=== PATIENT | male | born 1960 | race Caucasian/White ===

== ENCOUNTER 2024-09-10 09:00 | Outpatient (RCR) | payer MEDICAID, SELFPAY | END 2024-10-10 09:46 | disposition home or self-care (01) | LOC: PT 09:00 | PROVIDERS: Visit Provider Orthopaedic Surgery | DX: M17.11 Unilateral primary osteoarthritis, right knee (principal) | CPT/HCPCS: 97110; 97140; 97163; 97164; 97530 ==

== ENCOUNTER 2025-08-18 10:11 | Outpatient (CLI) | payer MEDICAID, SELFPAY ==
--- OUTSIDE RECORDS SUMMARY | 2025-07-02 11:05 | XMS_ITS | Encounter Summary ---
Author Organization Healthcare Address [address] [id number] Care Team Providers Care Manager Of Construction Name Role Phone Black Karen AMEYA Primary Care Provider [phone] Raisa Cuevas MD Unavailable [phone] Jillian Hare Unavailable [phone] Chris Choe MD Unavailable [phone] Reason for Visit * Reason Comments Follow-up Encounter Details Date Type Department Care Team (Latest Contact Info) Description 07/02/2025 11:05 AM EDT - 07/02/2025 11:59 PM EDT Hospital Encounter [facility] [id number] [place] [address] Shu Hartman APRN [address] [place] [address] Prostate cancer (CMS/HCC) (Primary Dx) Discharge Disposition: Still a Patient Social History Tobacco Use Types Packs/Day Years Used Date Smoking Tobacco: Every Day Cigarettes 0.5 40.8 Started: 1984 Passive Smoke Exposure: Current Smokeless Tobacco: Never Tobacco Cessation:Ready to Q uit: Not Asked; Counseling Given: Not Answered Alcohol Use Standard Drinks/Week Comments Yes 0 (1 standard drink = 0.6 oz pur e alcohol) socially PHQ-2 Answer Date Recorded Patient Health Questionnaire-2 Score 0 11/12/2024 Sex and Gender Information Value Date Recorded Sex Assigned at Not on file Legal Sex Male 5:23 PM EDT Gender Identity Not on file Sexual Orientation Not on file documented as of this encounter Last Filed Vital Signs Vital Sign Reading Time Taken Comments Blood Pressure 133/77 07/02/2025 11:13 AM EDT Pulse 85 07/02/2025 11:13 AM EDT Temperature - - Respiratory Rate 16 07/02/2025 11:13 AM EDT Oxygen Saturation 98% 07/02/2025 11:13 AM EDT Inhaled Oxygen Concentration - - Weight 102 kg (225 lb 1.4 oz) 07/02/2025 11:13 A M EDT Height - - Body Mass Index 28.9 05/22/2025 9:09 AM EDT documented in this encounter Medications at Time of Discharge acetaminophen (Tylenol) 500 MG tablet Take 2 tablets (1,000 mg) by mouth every 6 (six) hours if needed for pain for up to 60 doses. 60 tablet 10/25/2024 albuterol 108 (90 Base) MCG/ACT inhaler Inhale 2 puffs as needed for wheezing. celecoxib (CeleBREX) 200 MG capsule 07/30/2024 gabapentin (Neurontin) 300 MG capsule TAKE ONE CAPSULE BY MOUTH NIGHTLY FOR FOURTEEN DAYS. max DAILY dosage 300 MG. 08/26/2024 ibuprofen 600 MG tablet Take 1 tablet (600 mg) by mouth every 6 (six) hours if needed for mild pain for up to 40 doses. 40 tablet 10/25/2024 lisinopril-hydroC HLOROthiazide 20-25 MG tablet Take 1 tablet by mouth daily. 04/30/2025 relugolix (Orgovyx) 120 MG tablet tablet Take 1 tablet by mouth daily. Take 3 tablets the first day and then one tablet daily for 6 months. 33 tablet 5 01/17/2025 tamsulosin (Flomax) 0.4 MG 24 hr capsuleIndication s:Prostate cancer (CMS/HCC) Take 1 capsule by mouth 1 time each day with dinner. 90 capsule 1 06/30/2025 documented as of this encounter Miscellaneous Notes * Progress Notes - Shu Hartman, RIVER CROSSING SUPERVISOR - 07/02/2025 11:40 AM EDT Images from the original note were not included. [facility] RADIATION MEDICINE RADIATION ONCOLOGY RIVER CROSSING SUPERVISOR FOLLOW UP NOTE Jed Garg is a 65 y.o. male with a diagnosis of prostate cancer who returns today for scheduled follow-up. Cancer Staging Prostate cancer (CMS/[facility]) Staging form: Prostate, AJCC 8th Edition - Clinical stage from 04/11/2025: Stage IIC (cT1c, cN0, cM0, PSA: 9.5, Grade Group: 3) - Signed by Chris Choe MD on 04/11/2025 Diagnosis: unfavorable-intermediate prostatic adenocarcinoma, [place] 4+3=7 (GG3), PT-PSA 9.5 ng/mL Referring Physician: Raisa Cuevas MD Radiation Oncologist: Chris Choe MD RADIATION THERAPY (XRT): Treatment Site: Prostate and Seminal Vesicles Total Dose: 7000 cGy delivered to prostate & SV in 28 fractions VMAT daily Date XRT completed: 04/28/2025-06/04/2025 HISTORY OF PRESENT ILLNESS: Jed Garg 65 y.o. male with PMH of HTN as well as recently diagnosed intermediate prostatic adenocarcinoma, for which he underwent a course of radiation, as documented above. He did well with treatment, did have some urinary retention managed with tamsulosin (Flomax). He presents today for scheduled follow up. Oncologic History: In brief, Mr Garg initially presented to Urology on 04/17/24 with an elevated PSA of 9.5 ng/ml, take 03/19/24. mpMRI 06/11/24 detailed a 31.2 mL gland and a PI- RADS 5 right midgland anterior PZ lesion, without SVI, CHRISTI, lymphadenopathy, or osseous involvement. MR Fusion Biopsy 10/25/24 detailed prostatic adenocarcinoma, Todd 4+3=7 (GG3) involving 1/2 cores in the RIGHT anterolateral region and G leason 3+4=7 (GG2) involving 2/2 cores in the RIGHT anteromedial region PSMA without evidence of metastatic disease. S/p gold fiducial placement and [employer]. IPSS Questionnaire (AUA-7): Over the past month??? 1) How often have you had a sensation of not emptying your bladder completely after you finish urinating? 0 - Not at all 2) How often have you had to urinate again less than two hours after you finished urinating? 0 - Not at all 3) How often have you found you stopped and started again several times when you urinated? 0 - Not at all 4) How difficult have you found it to postpone urination? 0 - Not at all 5) How often have you had a weak urinary stream? 0 - Not at all 6) How often have you had to push or strain to begin urination? 1 - Less than 1 time in 5 7) How many times did you most typically get up to urinate from the time you went to bed until the time you got up in the morning? 1 - 1 time Total score: 0-7 mildly symptomatic 8-19 moderately symptomatic 20-35 severely symptomatic Interval History: Doing well and feeling well. His fatigue has improved in the last 2 weeks. 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 No skin changes. Denies any progression of changes in urinary symptoms. IPPS similar to previous. No change in bowel habits. He denies nausea, vomiting, diarrhea, constipation, orblood with his bowel movements. Denies any new or unexplained aches or pains. No changes in health status, no recent illness or hospitalization. Review of Systems Constitutional: Positive for fatigue. HENT: Negative. Eyes: Negative. Respiratory: Negative. Gastrointestinal: Negative for abdominal pain, blood in stool, constipation and diarrhea. Endocrine: Negative. Genitourinary: Negative for dysuria, frequency and hematuria. Musculoskeletal: Negative. Skin: Negative for color change and rash. Allergic/Immunologic: Negative. Neurological: Negative. Psychiatric/Behavioral: Negative. KPS: 90 Past Medical, Surgical, and Family History: I have reviewed Mr. Garg's medical, surgical and otherpertinent history; unchanged from most recent clinic visit or updated as indicated in HPI. Social History[1] The patient has been counseled on tobacco cessation: Yes Medications: Current Outpatient Medications Medication Instructions acetaminophen (TYLENOL) 1,000 mg, Oral, Every 6 hours PRN albuterol 108 (90 Base) MCG/ACT inhaler 2 puffs, As needed celecoxib (CeleBREX) 200 MG capsule gabapentin (Neurontin) 300 MG capsule TAKE ONE CAPSULE BY MOUTH NIGHTLY FOR FOURTEEN DAYS. max DAILY dosage 300 MG. ibuprofen 600 mg, Oral, Every 6 hours PRN lisinopril-hydroCHLOROthiazide 20-25 MG tablet 1 tablet, Daily relugolix (ORGOVYX) 120 mg, Oral, Daily, Take 3 tablets the first day and then one tablet daily for6 months. tamsulosin (FLOMAX) 0.4 mg, Oral, Daily with dinner Allergies: Patient has no known allergies. Physical Exam: Vital Signs: Visit Vitals BP 133/77 Pulse 85 Resp 16 Wt 102 kg (225 lb 1.4 oz) SpO2 98% BMI 28.90 kg/m?? Smoking Status Every Day BSA 2.31 m?? Wt Readings from Last 3 Encounters: 07/02/25 102 kg (225 lb 1.4 oz) 05/29/25 95.4 kg (210 lb 5.1 oz) 05/22/25 95.1 kg (209 lb 10.5 oz) Physical Exam Constitutional: Appearance: Normal appearance. He is not ill-appearing. HENT: Head: Normocephalic and atraumatic. Nose: Nose normal. Mouth/Throat: Mouth: Mucous membranes are moist. Eyes: Extraocular Movements: Extraocular movements intact. Conjunctiva/sclera: Conjunctivae normal. Pupils: Pupils are equal, round, and reactive to light. Pulmonary: Effort: Pulmonary effort is normal. Abdominal: Palpations: Abdomen is soft. Musculoskeletal: General: Normal range of motion. Cervical back: Normal range of motion. Skin: General: Skin is warm. Capillary Refill: Capillary refill takes less than 2 seconds. Neurological: Mental Status: He is alert. Psychiatric: Mood and Affect: Mood normal. Thought Content: Thought content normal. Judgment: Judgment normal. DATA: Radiographic Studies: PET/CT PSMA 01/06/2025 FINDINGS: SUV max parotid gland: 23.5,Left SUVmean mediastinum: 1.2 SUV max liver: 5.1 SUV max spleen: 8.7 Psma avid activity within the prostate, predominantly anteriorly compatible with the patient's biopsy-proven prostate adenocarcinoma. PATHOLOGY: PROSTATE, RIGHT ANTERIOR MEDIAL, BIOPSY: - PROSTATIC ADENOCARCINOMA, TODD SCORE 3 + 4 = 7 (GRADE GROUP 2), INVOLVING 80% OF 2 (2) CORE (20% TODD PATTERN 4). E. PROSTATE, RIGHT ANTERIOR LATERAL, BIOPSY: - PROSTATIC ADENOCARCINOMA, TODD SCORE 4 + 3 = 7 (GRADE GROUP 3), INVOLVING 10% OF 1 (2) CORE (60% TODD PATTERN 4). PROSTATE, TYLER, BIOPSY: - PROSTATIC ADENOCARCINOMA, TODD SCORE 4 + 3 = 7 (GRADE GROUP 3), INVOLVING 80% OF 4 (4) CORE (60% TODD PATTERN 4) Laboratory studies: PSA, Diagnostic, Serum 0.00 - 4.50 ng/mL 11.10 High ASSESSMENT AND PLAN In summary, Jed Garg is a 65-year-old male with a history of unfavorable- intermediate risk prostatic adenocarcinoma ([place] 4+3=7, Grade Group 3, pretreatment PSA 9.5 ng/mL), now one month statuspost completion of definitive radiation therapy on 06/04/2025. Assessment: The patient is currently doing well with no reported or observed radiation- related toxicities. Physical exam is stable, and he remains asymptomatic. PSA was obtained today but results are pending at the time of this note. Plan: RIVER CROSSING SUPERVISOR will call patient with results of PSA. Addendum: PSA resulted. Called patient, no answer and I was unable to leave a message. Reviewed plan for ongoing PSA surveillance per NCCN guidelines (typically every 3 for the first 1-2years). Patient was advised to report any urinary, bowel, or systemic symptoms if they develop. Follow-up plan: We will have him return in 3 months with PSA. Future Appointments Date Time Provider Department Center 08/15/2025 2:00 PM Raisa Cuevas MD [facility] 09/15/2025 11:20 AM [facility] I believe all of his questions were answered, and knows to call with questions or concerns. Mr. Garg verbalized understanding of visit discussion, education, and instructions, and is in agreement with the plan of care listed above. I personally spent a total of 20 minutes on this encounter. This time includes face to face with patient, counseling and discussion and/or coordination of care. Please do not hesitate to contact our office if you have any questions or need further assistance regarding follow-up care. Shu Hartman RN, MSN, BREAK OUT WORKER-C, Nurse Practitioner Radiation Oncology [1] Social History Tobacco Use Smoking status: Every Day Current packs/day: 0.25 Average packs/day: 0.5 packs/day for 40.7 years (20.2 ttl pk-yrs) Types: Cigarettes Start date: 1984 Passive exposure: Current Smokeless tobacco: Never Vaping Use Vaping status: Never Used Substance Use Topics Alcohol use: Yes Comment: socially Drug use: Not Currently documented in this encounter Plan of Treatment Upcoming Encounters Date Type Department Care Team (Latest Contact Info) Description 09/15/2025 11:20 AM EST Appointment [facility] Rad[facility] [address] [id number] [place] [address] Chris Choe MD [address] [facility] [address] [place] [address] 01/02/2026 1:40 PM EDT Office Visit [facility] [address] [place] [phone] Raisa Cuevas MD [address] [facility] [address] [place] [address] 01/02/2026 1:40 PM EDT Clinical Support [facility] [address] [place] [address] documented as of this encounter Procedures Procedure Name Priority Date/Time Associated Diagnosis Comments PROSTATE SPECIFIC ANTIGEN, DIAGNOSTIC, SERUM Routine 07/02/2025 11:14 AM EDT documented in this encounter Results * PSA, diagnostic (07/02/2025 11:14 AM EDT) PSA, Diagnostic, Serum 0.58 0.00 - 4.50 ng/mL 07/02/2025 12:21 PM EDT [facility] Blood Venous blood specimen / Unknown Venipuncture / Unknown 07/02/2025 11:14 AM EDT 07/02/2025 11:43 AM EDT Narrative [facility] - 07/02/2025 12:21 PM EDT Performed by Annie electrochemiluminescent immunoassay which is standardized against the PSA Edward Reference Standard (WHO 96/670). Results obtained with different test methods or kits cannot be used interchangeably. us Shu Hartman APRN LAB BLOOD ORDERABLES Final R esult [facility] [address] [place] [address] documented in this encounter Visit Diagnoses Diagnosis Prostate cancer (CMS/HCC)- Primary Malignant neoplasm of prostate documented in this encounter Additional Health Concerns Assessment Noted Time A fall risk assessment has been complete d for the patient 07/02/2025 11:11 AM EDT A Body Mass Index follow-up plan has been documented for the patient 11/14/2024 4:53 PM EST documented as of this encounter Care Teams Manager Of Construction Relationship Specialty Start Date End Date Karen Cleaning APRN [address] [place] [address] PCP - General 04/03/24 Raisa Cuevas MD [address] [facility] [address] [place] [phone] Surgeon Urology 04/17/24 Jillian Hare PA [address] [facility] [address] [place] [phone] Physician Coke Loader Urology 11/12/24 Chris Choe MD [address] [facility] [address] [place] [phone] Consulting Physician Radiation Oncology 11/14/24 documented as of this encounter
--- OUTSIDE RECORDS SUMMARY | 2025-08-15 14:00 | XMS_ITS | Encounter Summary ---
Author Organization Healthcare Address [address] [place] [address] Care Team Providers Care Binding Cutter Name Role Phone Karen Cleaning APRN Primary Care Provider [phone] Raisa Cuevas MD Unavailable [phone] Jillian Hare Unavailable [phone] Chris Choe MD Unavailable [phone] Reason for Visit * Reason Comments Follow-up Malignant neoplasm o f prostate- Follow up after Rad. Tx Encounter Details Date Type Department Care Team (Latest Contact Info) Description 08/15/2025 2:00 PM EDT Office Visit [facility] Multidisciplinary Oncology Clinic [address] [place] [phone] Raisa Cuevas MD [address] [facility] [address] [place] [address] Prostate cancer (CMS/HCC) (Primary Dx) Social History Tobacco Use Types Packs/Day Years Used Date Smoking Tobacco: Every Day Cigarettes 0.5 40.8 Started: 1984 Passive Smoke Exposure: Current Smokeless Tobacco: Never Alcohol Use Standard Drinks/Week Comments Yes 0 (1 standard drink = 0.6 oz pur e alcohol) socially PHQ-2 Answer Date Recorded Patient Health Questionnaire-2 Score 0 08/15/2025 PHQ-9 Answer Date Recorded Patient Health Questionnaire-9 Score 0 08/15/2025 Sex and Gender Information Value Date Recorded Sex Assigned at Not on file Legal Sex Male 5:23 PM EDT Gender Identity Not on file Sexual Orientation Not on file documented as of this encounter Last Filed Vital Signs Vital Sign Reading Time Taken Comments Blood Pressure 134/84 08/15/2025 2:04 PM EDT Pulse 81 08/15/2025 2:04 PM EDT Temperature 36.7 C (98 F) 08/15/2025 2:04 PM EDT Respiratory Rate 14 08/15/2025 2:04 PM EDT Oxygen Saturation 96% 08/15/2025 2:04 PM EDT Inhaled Oxygen Concentration - - Weight 101 kg (221 lb 12.5 oz) 08/15/2025 2:04 P M EDT Height 188 cm (6' 2 ) 08/15/2025 2:04 PM EDT Body Mass Index 28.48 08/15/2025 2:04 PM EDT documented in this encounter Functional Status * Over the past 2 weeks, how often have you been bothered by any of the following problems? Question Answer Date of Assessment Author Little interest or pleasure in doing things Not at all 08/15/2025 2:06 PM EDT Yael Donato Feeling down, depressed, or hopeless Not at all 07/24 2:06 PM EDT Yael Donato Patient Health Questionnaire-2 Score 0 07/24 2:06 PM EDT Yael Donato * Question Answer Date of Assessment Author Trouble falling or staying a sleep, or sleeping too much Not at all 08/15/2025 2:06 PM EDT Yael Donato Feeling tired or having sean le energy Not at all 08/15/2025 2:06 PM EDT Yael Donato Poor appetite or overeating Not at all 08/15/2025 2: 06 PM EDT Yael Donato Feeling bad about yourself - or that you are a failure or have let yourself or your family down Not at all 08/15/2025 2:06 PM EDT Brooks Donato Trouble concentrating on thi ngs, such as reading the newspaper or watching television Not at all 08/15/2025 2:06 PM EDT Yael Donato Moving or speaking so slowly that other people could have noticed? Or the opposite - being so fidgety or restless that you have been moving around a lot more than usual. Not at all 08/15/2025 2:06 PM EDT Karlene Donato Thoughts that you would be b lindy off or hurting yourself in some way Not at all 08/15/2025 2:06 PM EDT Yael Donato Patient Health Questionnaire-9 Score 0 07/24 2:06 PM EDT Yael Donato * How difficult have these problems made it for you to do your work, take care of things at home, or get along with other people? Answer Date of Assessment Author Not difficult at all 08/15/2025 2:06 PM EDT Yael Donato documented as of this encounter Plan of Treatment Upcoming Encounters Date Type Department Care Team (Latest Contact Info) Description 09/15/2025 11:20 AM EST Appointment [facility] Rad[facility] [address] [facility] [id number] [place] [address] Chris Choe MD [address] [facility] [address] [place] [address] 01/02/2026 1:40 PM EDT Office Visit [facility] [address] [place] [phone] Raisa Cuevas MD [address] [facility] [address] [place] [address] 01/02/2026 1:40 PM EDT Clinical Support [facility] [address] [place] [phone] Scheduled Orders Name Type Priority Associated Diagnoses Orde r Schedule PSA, diagnostic Lab Routine Prostate cancer (CMS/HCC) Expected: 01/13/2026 (Approximate), Expires: 02/16/2027 Testosterone Total Lab Routine Prostate cancer (CMS/HCC) Expected: 01/13/2026 (Approximate), Expires: 02/16/2027 documented as of this encounter Visit Diagnoses Diagnosis Prostate cancer (CMS/HCC)- Primary Malignant neoplasm of prostate documented in this encounter Additional Health Concerns Assessment Noted Time PHQ-9 Depression Total Score: 0 08/15/20 2:06 PM EDT A fall risk assessment has been complete d for the patient 08/15/2025 2:06 PM EDT A Body Mass Index follow-up plan has been documented for the patient 11/14/2024 4:53 PM EST documented as of this encounter Care Teams Binding Cutter Relationship Specialty Start Date End Date Karen Cleaning APRN [address] [place], [place] [id number] PCP - General 04/03/24 Raisa Cuevas MD [address] [place] [address] Surgeon Urology 04/17/24 Jillian Hare PA [address] [place] [address] Physician Lime Sludge Mixer Urology 11/12/24 Chris Choe MD [address] [place] [address] Consulting Physician Radiation Oncology 11/14/24 documented as of this encounter
--- NOTE | 2025-08-18 10:15 | CT_ITS ---
FINAL REPORT TECHNIQUE: Axial CT images of the chest were obtained without contrast. Low-dose protocol was utilized. This study was performed with techniques to keep radiation doses as low as reasonably achievable (ALARA). Individualized dose reduction techniques using automated exposure control or adjustment of mA and/or kV according to the patient's size were employed. CLINICAL HISTORY: HX OF TOBACCO. smoker 1ppd for 15 years. hx prostate cancer. COMPARISON: None FINDINGS: CT CHEST WITHOUT, LOW DOSE SCREENING CT Di Vol: 2.90 mGy DLP: 121.16 mGy*cm There is no mediastinal mass or adenopathy. The heart size is normal. There is no pleural or pericardial effusion. The lung windows show no suspicious mass or nodule. There are multitude of scattered calcified granulomas in both lungs. Limited images of the upper abdomen demonstrate no acute findings. IMPRESSION: No suspicious mass or nodule. LR Category 1: 12 month follow-up low-dose chest CT is recommended per Fleischner criteria. Reviewed, Interpreted and Dictated by Norman Gabriel MD Transcribed by Shu Jones Authenticated and [facility]
--- OUTSIDE RECORDS SUMMARY | 2025-08-18 10:21 | XMS_ITS | Encounter Summary ---
Author Organization Healthcare Address [address] [place] [address] Care Team Providers Care Home Care Scheduler Name Role Phone Karen Cleaning AMEYA Primary Care Provider [phone] Raisa Cuevas MD Unavailable [phone] Jillian Hare Unavailable [phone] Chris Choe MD Unavailable [phone] Reason for Visit * Reason Onset Date Comments Med Refill 06/27/2025 Encounter Details Date Type Department Care Team (Late st Contact Info) Description 06/27/2025 Refill [facility] [address] [place] [phone] Chris Choe MD [address] [facility] [address] [place] [address] Social History Tobacco Use Types Packs/Day Years [...] on file documented as of this encounter Plan of Treatment Upcoming Encounters Date Type Department Care Team (Latest Contact Info) Description 09/15/2025 11:20 AM EST Appointment [facility] Radiation [address] [facility] [id number] [place] [address] Chris Choe MD [address] [address] 01/02/2026 1:40 PM EDT Office Visit [facility] Multidisciplinary Oncology Clinic [address] [place] [address] Raisa Cuevas MD [address] [address] 01/02/2026 1:40 PM EDT Clinical Support [facility] Multidisciplinary Oncology Clinic [address] [place] [address] documented as of this encounter Visit Diagnoses Not on filedocumented in this encounter Additional Health Concerns Assessment Noted Time A fall risk assessment has been complete d for the patient 05/22/2025 9:09 AM EDT A Body Mass Index follow-up plan has been documented for the patient 11/14/2024 4:53 PM EST documented as of this encounter Care Teams Home Care Scheduler Relationship Specialty Start Date End Date Karen Cleaning APRN [address] [place] [address] PCP - General 04/03/24 Raisa Cuevas MD [address] [phone] Surgeon Urology 04/17/24 Jillian Hare PA [address] [address] Physician [employer] Lead [employer]ds Marketing Urology 11/12/24 Chris Choe MD [address] [phone] Consulting Physician Radiation Oncology 11/14/24 documented as of this encounter
--- OUTSIDE RECORDS SUMMARY | 2025-08-18 10:21 | XMS_ITS | Encounter Summary ---
Author Organization [facility] Address [address] [place] [address] Care Team Providers Care Traffic Routing Engineer Name Role Phone BlackKaren AMEYA Primary Care Provider [phone] Raisa Cuevas MD Unavailable [phone] Jillian Hare Unavailable [phone] Chris Choe MD Unavailable [phone] Encounter Details Date Type Department Care Team (Late st Contact Info) Description 07/07/2025 Telephone [facility] [address] [place] [address] Pushpa Espinoza RN [facility] Social History Tobacco Use Types Packs/Day Years [...] on file documented as of this encounter Miscellaneous Notes * Telephone Encounter - Pushpa Espinoza RN - 07/07/2025 12:56 PM EDT Patient called about recent PSA results. I relayed results is 0.58, nothing else needed. documented in this encounter Plan of Treatment Upcoming Encounters Date Type Department Care Team (Latest Contact Info) Description 09/15/2025 11:20 AM EST Appointment [facility] Radiation 800 [facility] [id number] [place] [address] Chris Choe MD 800 [facility] [address] [place] [phone] 01/02/2026 1:40 PM EDT Office Visit [facility] [address] [place] [address] Raisa Cuevas MD [address] [address] 01/02/2026 1:40 PM EDT Clinical Support [facility] [address] [place] [address] documented as of this encounter Visit Diagnoses Not on filedocumented in this encounter Additional Health Concerns Assessment Noted Time A fall risk assessment has been complete d for the patient 07/02/2025 11:11 AM EDT A Body Mass Index follow-up plan has been documented for the patient 11/14/2024 4:53 PM EST documented as of this encounter Care Teams Traffic Routing Engineer Relationship Specialty Start Date End Date Karen Cleaning APRN [address] [place] [address] PCP - General 04/03/24 Raisa Cuevas MD [address] [facility]00 [place] [phone] Surgeon Urology 04/17/24 Jillian Hare PA [address] [phone] Physician Senior Market Research Analyst Urology 11/12/24 Chris Choe MD [address] [place] [address] [address] [place] [address] Consulting Physician Radiation Oncology 11/14/24 documented as of this encounter
--- OUTSIDE RECORDS SUMMARY | 2025-08-18 10:21 | XMS_ITS | Clinical Summary ---
Author Organization [employer] ([place], [place], [place], [place]) Address [address] [facility] [place] [address] Care Team Providers Care Social Service Director Name Role Phone OcasioKimberly reddy [place] WEED THINNER Primary Care Provider + [phone] Allergies No known active allergies Medications lisinopril-hydro CHLOROthiazide (PRINZIDE,ZESTOR ETIC) 20-12.5 mg per tablet Take 1 tablet by mouth daily. Active Active Problems Problem Noted Date Diagnosed Date Primary osteoarthritis of right knee 07/15/2024 Essential hypertension 03/26/2024 Nicotine dependence 11/21/2019 Overview (07/30/2024): Problem Code: F17.200; Problem Code Type: ICD-10; Social History Tobacco Use Types Packs/Day Years Used Date Smoking Tobacco: Every Day Cigarettes Smokeless Tobacco: Never Tobacco Cessation:Ready to Q uit: Not Asked; Counseling Given: Not Answered Alcohol Use Standard Drinks/Week Comments Not Currently 2 (1 standard drink = 0.6 oz pur e alcohol) Employment Answer Date Recorded Help finding and keeping a job Not on file 0 03/25/2024 Family and Community Support Answer Brice e Recorded Help with Day to Day Activities Not on file 03/25/2024 Feeling Lonely or Isolated Not on file 03/25 Educational Attainment Answer Date Qamar rded Speak language other than [place]inean at home Not on file 03/25/2024 Want help with school or training Not on file 03/25/2024 Substance Use Answer Date Recorded Used prescription meds for non-medical reasons N ot on file 03/25/2024 Used illegal drugs past 12 months Not on file 03/25/2024 Sex and Gender Information Value Date Recorded Sex Assigned at Not on file Legal Sex Male 1:05 PM CDT Gender Identity Not on file Sexual Orientation Not on file Last Filed Vital Signs Vital Sign Reading Time Taken Comments Blood Pressure 131/82 10/21/2024 9:52 AM EST Pulse 92 10/21/2024 9:52 AM EST Temperature 36.2 C (97.2 F) 07/30/2024 2:45 PM EDT Respiratory Rate 19 08/12/2024 10:09 AM EDT Oxygen Saturation 97% 07/30/2024 2:45 PM EDT Inhaled Oxygen Concentration - - Weight 95.3 kg (210 lb) 10/21/2024 9:48 AM EST Height 188 cm (6' 2 ) 10/21/2024 9:48 AM EST Body Mass Index 26.96 10/21/2024 9:48 AM EST Plan of Treatment Health Maintenance Due Date Last Done Comments CT Colonography 1962 Colonoscopy 1962 Colorectal Cancer Screening 1962 FOBT/FIT 1962 Fit-DNA (Cologuard) 1962 Sigmoidoscopy 1962 Depression Screening (12+) 1974 Tobacco Cessation Counseling and Screening (12+) 1974 HIV Screening 1977 Hepatitis C Screening 1980 DTAP/TDAP/TD VACCINES (1 - Tdap) 1981 Pneumococcal 50+ years (1 of 2 - PCV) 1981 Lipid Panel 1997 Shingles Vaccine (Zoster) (1 of 2) 2012 COVID-19 VACCINE (3 - season) 06/23/202510/2020, 12/24/2020 Influenza Vaccine (#1) 2025 Respiratory Syncytial Virus (RSV) Adult or (1 - 1-dose 75+ series) 2037 Medical Devices Implanted Type Area Cylinder Machine Operator Pulp Drier Device Identifier Shelf Expiration Date Model / Serial / Lot Comp Fem P/A Ps Beaded Sz6 R 5516-F-602 - [id number] Implanted:Qt y: 1 on 07/30/2024 by Jean Claude Rae MD at [facility] TOTAL JOINT CONSTRUCT Right: Knee MAGGIE:[employer] [id number] 10/06/2028 5516-F-60 2 / / [id number] Comp Triathlon-Ti b Trita Sz-6 5536-B-600 - [id number] Implanted:Qt y: 1 on 07/30/2024 by Jean Claude Rae MD at [facility] TOTAL JOINT CONSTRUCT Right: Knee [employer]IE:[employer] [id number] 04/01/2029 5536-B-60 0 / / [id number] Patella Press Fit Tritnm 38x11 5552-L-381 - [id number] Implanted:Qt y: 1 on 07/30/2024 by Jean Claude Rae MD at [facility] TOTAL JOINT CONSTRUCT Right: Knee [employer] [id number] 02/13/2029 5552-L-38 1 / / [id number] Insrt Triath Ps X3 6-9mm 1510-V-485-E - [id number] Implanted:Qt y: 1 on 07/30/2024 by Jean Claude Rae MD at [facility] TOTAL JOINT CONSTRUCT Right: Knee [employer] [id number] 08/28/2028 5532-G-60 9-E / / [id number] Insurance Advance Directives For more information, please contact: [phone] * Full Code (Latest Code Status on File) Date Activated Date Inactivated Comments 07/30/2024 12:00 PM 07/30/2024 3:56 PM * Full Code Date Activated Date Inactivated Comments 07/30/2024 8:35 AM 07/30/2024 12:00 PM Care Teams Social Service Director Relationship Specialty Start Date End Date Kimberly Ocasio, WEED THINNER [address] [place] [address] PCP - General Family Medicine 07/16/24
--- OUTSIDE RECORDS SUMMARY | 2025-08-18 10:21 | XMS_ITS | Encounter Summary ---
Author Organization [facility] Address [address] [place] [address] Care Team Providers Care Sheeter Machine Operator Name Role Phone Karen Cleaning APRN Primary Care Provider [phone] Raisa Cuevas MD Unavailable [phone] Jillian Hare Unavailable [phone] Chris Choe MD Unavailable [phone] Encounter Details Date Type Department Care Team (Latest Contact Info) Description 07/02/2025 Travel Social History Tobacco Use Types Packs/Day Years [...] AM EST Appointment [facility] Radiation 800 [facility] [id number] [place] [address] Chris Choe MD 800 [facility] [address] [place] [address] 01/02/2026 1:40 PM EDT Office Visit [facility] [address] [place] [address] Raisa Cuevas MD [id number] [place] [phone] 01/02/2026 1:40 PM EDT Clinical Support [facility] Multidisciplinary Oncology Clinic [address] [place] [address] documented as of this encounter Visit Diagnoses Not on filedocumented in this encounter Additional Health Concerns Assessment Noted Time A fall risk assessment has been complete d for the patient 07/02/2025 11:11 AM EDT A Body Mass Index follow-up plan has been documented for the patient 11/14/2024 4:53 PM EST documented as of this encounter Care Teams Sheeter Machine Operator Relationship Specialty Start Date End Date Karen CleaningAMEYA [address] [place], [place] [id number] PCP - General 04/03/24 Raisa Cuevas MD [address] [facility] [address] [place] [address] Surgeon Urology 04/17/24 Jillian Hare PA [id number] [place] [address] Physician Potato Spotter Urology 11/12/24 Chris Choe MD 800 [facility] [address] [place] [address] Consulting Physician Radiation Oncology 11/14/24 documented as of this encounter
--- OUTSIDE RECORDS SUMMARY | 2025-08-18 10:21 | XMS_ITS | Encounter Summary ---
Author Organization [facility] Address [address] [id number] Care Team Providers Care Heel Cover Splitter Name Role Phone BlackKaren AMEYA Primary Care Provider [phone] Raisa Cuevas MD Unavailable [phone] Jillian Hare Unavailable [phone] Chris Choe MD Unavailable [phone] Encounter Details Date Type Department Care Team (Latest Contact Info) Description 08/15/2025 Travel Social History Tobacco Use Types Packs/Day [...] on file documented as of this encounter Functional Status * Over the [...] Not at all 08/15/2025 2:06 PM EDT [facility] [place] Poor appetite or overeating Not at [...] AM EST Appointment [facility] Rad[facility] 800 [facility] [id number] [place] [address] Chris Choe MD 800 [facility] [address] [place] [address] 01/02/2026 1:40 PM EDT Office Visit [facility] [address] [place] [address] Raisa Cuevas MD [address] [place] [address] 01/02/2026 1:40 PM EDT Clinical Support [facility] Multidisciplinary Oncology Clinic [address] [place] [address] documented as of this encounter Visit Diagnoses [...] documented as of this encounter Care Teams Heel Cover Splitter Relationship Specialty Start Date End Date Karen Cleaning APRN [address] [place], [place] [id number] PCP - General 04/03/24 Raisa Cuevas MD [address] [place] [address] Surgeon Urology 04/17/24 Jillian Hare PA [address] [place] [address] Physician Internet Specialist Urology 11/12/24 Chris Choe MD 800 [facility] [address] [place] [address] Consulting Physician Radiation Oncology 11/14/24 documented as of this encounter
--- OUTSIDE RECORDS SUMMARY | 2025-08-18 10:21 | XMS_ITS | Encounter Summary ---
Author Organization Healthcare Address [address] [id number] Care Team Providers Care Neuroscience Specialist Name Role Phone Karen Cleaning AMEYA Primary Care Provider + [phone] Raisa Cuevas MD Unavailable [phone] Jillian Hare Unavailable [phone] Chris Choe MD Unavailable [phone] Encounter Details Date Type Department Care Team (Late st Contact Info) Description 06/30/2025 Orders Only [facility] Radiation [address] [address] Reyes Valdez MD [address] [place] [address] Prostate cancer (CMS/HCC) (Primary Dx) Social History [...] AM EST Appointment [facility] Radiation [address] [address] Chris Choe MD 800 [facility] [address] [place] [address] 01/02/2026 1:40 PM EDT Office Visit [facility] [address] [place] [phone] Raisa Cuevas MD [address] [address] 01/02/2026 1:40 PM EDT Clinical Support [facility] Multidisciplinary Oncology Clinic [address] [place] [address] documented as of this encounter [...] documented as of this encounter Care Teams Neuroscience Specialist Relationship Specialty Start Date End Date BlackKarenAMEYA [address] [place], [place] [id number] PCP - General 04/03/24 Raisa Cuevas MD [address] [address] Surgeon Urology 04/17/24 Jillian Hare PA [address] [address] Physician Inspector Process Urology 11/12/24 Chris Choe MD 800 [facility] [address] [place] [address] Consulting Physician Radiation Oncology 11/14/24 documented as of this encounter
--- OUTSIDE RECORDS SUMMARY | 2025-08-18 10:21 | XMS_ITS ---
Author Organization Healthcare Address [address] [place] [address] Care Team Providers Care Solar Energy System Installer Name Role Phone Karen Cleaning APRN Primary Care Provider [phone] Raisa Cuevas MD Unavailable [phone] Jillian Hare Unavailable [phone] Chris Choe MD Unavailable [phone] Active Problems Problem Noted Date Diagnosed Date Tobacco use disorder 08/15/2025 Prostate cancer 04/06/2025 Cancer Staging:Clinical stage from 04/11/2025:Stage IIC(cT1c, cN0, cM0, PSA: 9.5, Grade Group: 3) - Signed by Chris Choe MD on 04/11/2025 Primary hypertension 10/25/2024 Asthma 10/25/2024 Arthritis 10/25/2024 Current Treatment and Therapy Plans No current plan information found. Past Treatment and Therapy Plans No past plan information found. Current Radiation Episodes * Radiation Therapy: Midline ProstateOverview* First Treatment Date Latest Treatment Date Treatment Site Technique Goal Episode Provider 04/28/2025 06/05/2025 Midline Prostate Definitive * Linked Problems Prostate cancer Treatment Courses* Course IMRT QA 06/05/2025 - 06/05/2025 Treatment Period Fraction Dose Fractions Total Dose Plans Planned A1-2 Prost/SV 06/05/2025 - 06/05/2025 250 cGy 0 / 1 250 cGy Reference Points Delivered Verification 06/05/2025 - 06/05/2025 0 cGy * Course C1 04/28/2025 - 06/04/2025 Treatment Period Fraction Dose Fractions Total Dose Plans Planned A1-2 Prost/SV 04/28/2025 - 06/04/2025 250 cGy / 7,000 cGy Reference Points Delivered PTV_XX 04/28/2025 - 06/04/2025 7,000 cGy
--- OUTSIDE RECORDS SUMMARY | 2025-08-18 10:21 | XMS_ITS | Referral Summary ---
Author Organization [facility] ([place], [place], [place], [place]) Address [address] [place] [address] Care Team Providers Care Assembler Mechanical Ordnance Name Role Phone Amarjit Kimberly [employer] HOU Primary Care Provider + [phone] Allergies No known active allergies Medications lisinopril-hydro [...] Date Qamar rded Speak language other than Georgian at home Not on file 03/25/2024 Want [...] 10/21/2024 9:48 AM EST Plan of Treatment Not on file Medical Devices Implanted Type Area Box Sealing Machine Catcher Device Identifier Shelf Expiration Date Model / Serial / Lot Comp Fem P/A Ps Beaded Sz6 R 5516-F-602 - [id number] Implanted:Qt y: 1 on 07/30/2024 by Jean Claude Rae MD at [facility] TOTAL JOINT CONSTRUCT Right: Knee [employer] [id number] 10/06/2028 5516-F-60 2 / / [id number] Comp Triathlon-Ti b Trita Sz-6 5536-B-600 - [id number] Implanted:Qt y: 1 on 07/30/2024 by Jean Claude Rae MD at [facility] TOTAL JOINT CONSTRUCT Right: Knee [employer] [id number] 04/01/2029 5536-B-60 0 / / [id number] Patella Press Fit Tritnm 38x11 5552-L-381 - [id number] Implanted:Qt y: 1 on 07/30/2024 by Jean Claude Rae MD at [facility] TOTAL JOINT CONSTRUCT Right: Knee [employer] [id number] 02/13/2029 5552-L-38 1 / / [id number] Insrt Triath Ps X3 6-9mm 0731-J-033-E - [id number] Implanted:Qt y: 1 on 07/30/2024 by Jean Claude Rae MD at [facility] TOTAL JOINT CONSTRUCT Right: Knee [employer] [id number] 08/28/2028 5532-G-60 9-E / / [id number] Insurance [facility] Advance Directives For more information, please contact: [phone] * Full Code (Latest Code Status on File) Date Activated Date Inactivated Comments 07/30/2024 12:00 PM 07/30/2024 3:56 PM * Full Code Date Activated Date Inactivated Comments 07/30/2024 8:35 AM 07/30/2024 12:00 PM Care Teams Assembler Mechanical Ordnance Relationship Specialty Start Date End Date Kimberly Ocasio, FAN ENGINE ENGINEER [address] [place] [address] PCP - General Family Medicine 07/16/24
--- OUTSIDE RECORDS SUMMARY | 2025-08-18 10:22 | XMS_ITS | Clinical Summary ---
Author Organization [facility] Address [address] [place] [address] Care Team Providers Care Management Accountant Name Role Phone BlackKaren AMEYA Primary Care Provider [phone] Raisa Cuevas MD Unavailable [phone] Jillian Hare Unavailable [phone] Chris Choe MD Unavailable [phone] Allergies No known active allergies Medications albuterol 108 (90 Base) MCG/ACT inhaler Inhale 2 puffs as needed for wheezing. Active ibuprofen 600 MG tablet Take 1 tablet (600 mg) by mouth every 6 (six) hours if needed for mild pain for up to 40 doses. 40 tablet 10/25/2024 Active acetaminophen (Tylenol) 500 MG tablet Take 2 tablets (1,000 mg) by mouth every 6 (six) hours if needed for pain for up to 60 doses. 60 tablet 10/25/2024 Active celecoxib (CeleBREX) 200 MG capsule 07/30/2024 Active gabapentin (Neurontin) 300 MG capsule TAKE ONE CAPSULE BY MOUTH NIGHTLY FOR FOURTEEN DAYS. max DAILY dosage 300 MG. 08/26/2024 Active relugolix (Orgovyx) 120 MG tablet tablet Take 1 tablet by mouth daily. Take 3 tablets the first day and then one tablet daily for 6 months. 33 tablet 5 01/17/2025 Active lisinopril-hydr oCHLOROthiazide 20-25 MG tablet Take 1 tablet by mouth daily. 04/30/2025 Active tamsulosin (Flomax) 0.4 MG 24 hr capsuleIndicati ons:Prostate cancer (CMS/HCC) Take 1 capsule by mouth 1 time each day with dinner. 90 capsule 1 06/30/2025 Active Active Problems Problem Noted Date Diagnosed Date Tobacco use disorder 08/15/2025 Prostate cancer 04/06/2025 Cancer Staging:Clinical stage from 04/11/2025:Stage IIC(cT1c, cN0, cM0, PSA: 9.5, Grade Group: 3) - Signed by Chris Choe MD on 04/11/2025 Primary hypertension 10/25/2024 Asthma 10/25/2024 Arthritis 10/25/2024 Encounters Date Type Department Care Team Description 08/15/2025 2:00 PM EDT Office Visit [facility] [address] [place] [address] Raisa Cuevas MD Prostate cancer (CMS/HCC) (Primary Dx) 08/15/2025 Travel 07/07/2025 Telephone [facility] [address] [address] Pushpa Espinoza RN 07/02/2025 11:05 AM EDT - 07/02/2025 11:59 PM EDT Hospital Encounter [facility] [address] [address] Shu Hartman APRN Prostate cancer (CMS/HCC) (Primary Dx) Discharge Disposition: Still a Patient 07/02/2025 Travel 06/30/2025 Orders Only [facility] [address] [phone] Reyes Valdez MD Prostate cancer (CMS/HCC) (Primary Dx) 06/27/2025 Refill [facility] [address] [place] [address] Chris Choe MD 06/10/2025 Telephone [facility] [address] [place] [address] Raisa Cuevas MD 06/05/2025 Orders Only [facility] [address] [phone] Radiation Oncology, Physician, 06/05/2025 Orders Only [facility] [address] [address] Radiation Oncology, Physician, 06/04/2025 9:16 AM EDT - 06/04/2025 11:59 PM EDT Hospital Encounter [facility] [address] [address] Discharge Disposition: Still a Patient 06/04/2025 Orders Only [facility] [address] [address] Radiation Oncology, PhysicianMD 06/03/2025 9:22 AM EDT - 06/03/2025 11:59 PM EDT Hospital Encounter [facility] [address] [address] Discharge Disposition: Still a Patient 06/03/2025 Telephone [facility] [address] [place] [address] Raisa Cuevas MD HCN - Patient Message (Requesting reports ); HCN Status Update Call #1 06/03/2025 Orders Only [facility] [address] [address] Radiation Oncology, PhysicianMD 06/02/2025 9:04 AM EDT - 06/02/2025 11:59 PM EDT Hospital Encounter [facility] [address] [address] Discharge Disposition: Still a Patient 06/02/2025 7:50 AM EDT - 06/02/2025 9:03 AM EDT Hospital Encounter [facility] [address] [address] Discharge Disposition: Still a Patient 06/02/2025 Orders Only [facility] [address] [address] Radiation Oncology, PhysicianMD 06/02/2025 Travel 05/30/2025 9:21 AM EDT - 05/30/2025 11:59 PM EDT Hospital Encounter [facility] [address] [address] Discharge Disposition: Still a Patient 05/30/2025 Orders Only [facility] [address] [address] Radiation Oncology, Physician, 05/29/2025 9:16 AM EDT - 05/29/2025 11:59 PM EDT Hospital Encounter [facility] [address] [address] Chris Choe MD Prostate cancer ([facility]/HCC) (Primary Dx) Discharge Disposition: Still a Patient 05/29/2025 9:16 AM EDT - 05/29/2025 11:59 PM EDT Hospital Encounter [facility] [address] [address] Discharge Disposition: Still a Patient 05/29/2025 Orders Only [facility] [address] [address] Radiation Oncology, PhysicianMD 05/28/2025 9:34 AM EDT - 05/28/2025 11:59 PM EDT Hospital Encounter [facility] [address] [address] Discharge Disposition: Still a Patient 05/28/2025 Orders Only [facility] [address] [address] Radiation Oncology, PhysicianMD 05/27/2025 9:07 AM EDT - 05/27/2025 11:59 PM EDT Hospital Encounter [facility] [address] [address] Discharge Disposition: Still a Patient 05/27/2025 Orders Only [facility] [address] [address] Radiation Oncology, PhysicianMD 05/26/2025 8:31 AM EDT - 05/26/2025 11:59 PM EDT Hospital Encounter [facility] [address] [address] Discharge Disposition: Still a Patient 05/26/2025 7:50 AM EDT - 05/26/2025 8:30 AM EDT Hospital Encounter [facility] [address] [address] Discharge Disposition: Still a Patient 05/26/2025 Orders Only [facility] [address] [phone] Radiation Oncology, PhysicianMD 05/26/2025 Travel 05/23/2025 9:15 AM EDT - 05/23/2025 11:59 PM EDT Hospital Encounter [facility] [address] [phone] Discharge Disposition: Still a Patient 05/23/2025 Orders Only [facility] [address] [phone] Radiation Oncology, PhysicianMD 05/22/2025 9:06 AM EDT - 05/22/2025 11:59 PM EDT Hospital Encounter [facility] [address] [phone] Chris Choe MD Prostate cancer ([facility]) (Primary Dx) Discharge Disposition: Still a Patient 05/22/2025 8:50 AM EDT - 05/22/2025 9:05 AM EDT Hospital Encounter [facility] [address] [phone] Discharge Disposition: Still a Patient 05/22/2025 Orders Only [facility] [address] [address] Radiation Oncology, PhysicianMD 05/21/2025 9:10 AM EDT - 05/21/2025 11:59 PM EDT Hospital Encounter [facility] [address] [address] Discharge Disposition: Still a Patient 05/21/2025 Orders Only [facility] [address] [phone] Radiation Oncology, PhysicianMD 05/20/2025 8:59 AM EDT - 05/20/2025 11:59 PM EDT Hospital Encounter [facility] [address] [phone] Discharge Disposition: Still a Patient 05/20/2025 Orders Only [facility] [address] [address] Radiation Oncology, Physician, 05/19/2025 8:58 AM EDT - 05/19/2025 11:59 PM EDT Hospital Encounter [facility] [address] [address] Discharge Disposition: Still a Patient 05/19/2025 7:50 AM EDT - 05/19/2025 8:57 AM EDT Hospital Encounter [facility] [address] [address] Discharge Disposition: Still a Patient 05/19/2025 Travel 05/19/2025 Orders Only [facility] [address] [address] Radiation Oncology, Physician, from Last 3 Months Family History Medical History Relation Name Comments Heart disease Father Leukemia Mother Malig Hyperthermia Neg Hx Relation Name Status Comments Father Mother Social History Tobacco Use Types Packs/Day Years [...] Mass Index 28.48 08/15/2025 2:04 PM EDT Plan of Treatment Upcoming Encounters Date Type Department Care Team (Latest Contact Info) Description 09/15/2025 11:20 AM EST Appointment [facility] [address] [facility] [address] [place] [address] Chris Choe MD [address] [facility] [address] [place] [address] 01/02/2026 1:40 PM EDT Office Visit [facility] [address] [place] [address] Raisa Cuevas MD [address] [facility] [address] [place] [address] 01/02/2026 1:40 PM EDT Clinical Support [facility] [address] [place] [address] Health Maintenance Due Date Last Done Comments [facility]-HIV Screening 1962 [facility]-Hepatitis C Screening 1962 [facility]-/Child/Adol SDOH Screenings 1962 [facility]- SDOH Screenings 1980 [facility]-Adult SDOH Screenings 1980 [facility]-DTaP,Tdap,and Td Vaccine s (1 - Tdap) 1981 [facility]-Pneumococcal Vaccine: 50 + Years (1 of 2 - PCV) 1981 [facility]-Zoster Vaccines (1 of 2) 1981 CT Colonography 2007 Colonoscopy 2007 FIT-DNA 2007 FIT 2007 FOBT 2007 Sigmoidoscopy 2007 [facility]-Colorectal Cancer Screening 2007 Lung Cancer Screening Shared Decision Making 2012 [facility]-Lung Cancer Screening 2012 [id number] Vaccine (3 - Moderna risk series) 02/18/2021 01/21/2021, 12/24/2020 [facility]-RSV Vaccine: 60+ Years o r (1 - Risk 60-74 years 1-dose series) 2022 [facility]-Influenza Vaccine (#1) 2025 [facility]-Depression Screening 08/15/2026 025, 08/15/2025 [facility]-Obesity Intervention Completed 025, 07/23/2024, 04/17/2024 HPV Vaccines Aged Out No longer eligi ble based on patient's age to complete this topic [facility]-HIB Vaccines Aged Out No longer e ligible based on patient's age to complete this topic [facility]-Hepatitis A Vaccines Aged Out No longer eligible based on patient's age to complete this topic [facility]-IPV Vaccines Aged Out No longer e ligible based on patient's age to complete this topic [facility]-Rotavirus Vaccines Aged Out No lo nger eligible based on patient's age to complete this topic Medical Devices Implanted Type Area Take Out Waiter/Waitress Device Identifier Shelf Expiration Date Model / Serial / Lot Needle Placement [id number] Paco 1.2x3mm 3/Bx - [id number] Implanted:Qty: 1 on 03/18/2025 by Raisa Cuevas MD at [facility]-[id number] / / Procedures Procedure Name Priority Date/Time Associated Diagnosis Comments PROSTATE SPECIFIC ANTIGEN, DIAGNOSTIC, SERUM Routine 07/02/2025 11:14 AM EDT RAD ONC [facility] COURSE SUMMARY Routine 06/05/2025 12:14 PM EDT RAD ONC [facility]A COURSE SUMMARY Routine 06/05/2025 12:13 PM EDT RAD ONC ARIA SESSION SUMMARY Routine 06/04/2025 9:36 AM EDT RAD ONC ARIA SESSION SUMMARY Routine 06/03/2025 9:36 AM EDT RAD ONC ARIA SESSION SUMMARY Routine 06/02/2025 9:27 AM EDT RAD ONC ARIA SESSION SUMMARY Routine 05/30/2025 9:36 AM EDT RAD ONC ARIA SESSION SUMMARY Routine 05/29/2025 9:51 AM EDT RAD ONC ARIA SESSION SUMMARY Routine 05/28/2025 9:57 AM EDT RAD ONC ARIA SESSION SUMMARY Routine 05/27/2025 9:22 AM EDT RAD ONC ARIA SESSION SUMMARY Routine 05/26/2025 8:46 AM EDT RAD ONC ARIA SESSION SUMMARY Routine 05/23/2025 9:29 AM EDT RAD ONC ARIA SESSION SUMMARY Routine 05/22/2025 9:02 AM EDT RAD ONC ARIA SESSION SUMMARY Routine 05/21/2025 9:19 AM EDT RAD ONC ARIA SESSION SUMMARY Routine 05/20/2025 9:15 AM EDT RAD ONC ARIA SESSION SUMMARY Routine 05/19/2025 9:20 AM EDT from Last 3 Months Results * PSA, diagnostic (07/02/2025 11:14 AM EDT) PSA, Diagnostic, Serum 0.58 0.00 - 4.50 ng/mL 07/02/2025 12:21 PM EDT [facility] Blood Venous blood specimen / Unknown Venipuncture / Unknown 07/02/2025 11:14 AM EDT 07/02/2025 11:43 AM EDT Narrative [facility] - 07/02/2025 12:21 PM EDT Performed by Annie electrochemiluminescent immunoassay which is standardized against the PSA Edward Reference Standard (WHO 96/670). Results obtained with different test methods or kits cannot be used interchangeably. us Shu Hartman APRN LAB BLOOD ORDERABLES Final R esult [facility] [address] [place] [address] * Rad Onc [facility] Course Summary (06/05/2025 12:14 PM EDT) Course ID C1 [facility] RADIATION ONCOLOGY Course Intent Curative [facility] RADIATION ONCOLOGY Course Start Date 04/08/2025 12:09 AM [facility] Course End Date 06/05/2025 12:14 PM [facility] Course First Treatment Date 04/28/2025 9:25 AM [facility] Course Last Treatment Date 06/04/2025 9:35 AM [facility] Course Elapsed Days 37 [facility]ATION [facility]COLOG[facility] Reference Point ID [id number] [facility] RAD[facility]ATION [facility]COLOG[facility] Reference Point Dosage Given to Date 70 Gy [facility] Plan ID A1-2 Prost/SV [facility]COL[facility] Plan Name A1-2 Prost/SV [facility] Plan Fractions Treated to Date 28 [facility] RAD[facility]ATION [facility]COLOG[facility] Plan Total Fractions Prescribed 28 [facility] RADIATION ONCOLOGY Plan Prescribed Dose Per Fraction 2.5 Gy [facility] RAD[facility]ATION [facility]COLOG[facility] Plan Total Prescribed Dose 7,000 CGy [facility] RADIATION ONCOLOGY Plan Primary Reference Point [email or web address] [facility] RAD[facility]ATION ONCOLOG[facility] 06/05/2025 12:1 4 PM EDT Physician Radiation Oncology MD RADIATION ONCOLO GY ORDERABLES Final Result [facility] RADIATION [facility]COLOG[facility] * Rad Onc [facility] Course Summary (06/05/2025 12:13 PM EDT) Course ID IMRT QA [facility] RADIATION ONCOLOG[facility] Course Start Date 04/15/2025 4:12 PM [facility] Course End Date 06/05/2025 12:13 PM [facility] Reference Point ID Verification [facility] RAD[facility]ATION [facility]COLOG[facility] Reference Point Dosage Given to Date 0.0E0 Gy [facility]COL[facility] Plan ID A1-2 Prost/SV [facility] RADIATION ONCOLOG[facility] Plan Name A1-2 Prost/SV [facility]ATION [facility]COLOG[facility] Plan Fractions Treated to Date 0 [facility] RADIATION ONCOLOGY Plan Total Fractions Prescribed 1 [facility] RADIATION ONCOLOGY Plan Prescribed Dose Per Fraction 2.5 Gy [facility] RADIATION ONCOLOGY Plan Total Prescribed Dose 250 CGy [facility] RADIATION ONCOLOGY Plan Primary Reference Point Verification [facility] RADIATION ONCOLOGY 06/05/2025 12:1 3 PM EDT Physician Radiation Oncology RADIATION ONCOLO GY ORDERABLES Final Result [facility] RADIATION ONCOLOGY * Rad Onc [facility] Session Summary (06/04/2025 9:36 AM EDT) Course ID C1 [facility] RADIATION ONCOLOGY Course Intent Curative [facility] RADIATION ONCOLOGY Course Start Date 04/08/2025 12:09 AM [facility] RADIATION [facility]COLOG[facility] Course First Treatment Date 04/28/2025 9:25 AM [facility] RADIATION ONCOLOG[facility] Course Last Treatment Date 06/04/2025 9:35 AM [facility] RADIATION ONCOLOG[facility] Course Elapsed Days 37 [facility] RADIATION ONCOLOGY Reference Point ID [id number] [facility] RADIATION ONCOLOGY Reference Point Dosage Given to Date 70 Gy [facility] RADIATION ONCOLOG[facility] Reference Point Session Dosage Given 2.5 Gy [facility] RADIATION ONCOLOG[facility] Plan ID A1-2 Prost/SV [facility] Plan Name Plan_Prostat e and Seminal Vesicles_PTV _70Gy [facility] Plan Fractions Treated to Date 28 [facility] RADIATION ONCOLOGY Plan Total Fractions Prescribed 28 [facility] RADIATION ONCOLOGY Plan Prescribed Dose Per Fraction 2.5 Gy [facility] RADIATION ONCOLOGY Plan Total Prescribed Dose 7,000 CGy [facility] RADIATION ONCOLOGY Plan Primary Reference Point [email or web address] [facility] RADIATION ONCOLOG[facility] 06/04/2025 9:36 AM EDT Physician Radiation Oncology RADIATION ONCOLO GY ORDERABLES Final Result [facility] RADIATION ONCOLOGY * Rad Onc [facility] Session Summary (06/03/2025 9:36 AM EDT) Course ID C1 [facility] RADIATION ONCOLOGY Course Intent Curative [facility] RADIATION ONCOLOGY Course Start Date 04/08/2025 12:09 AM [facility] RAD[facility]ATION [facility]COLOG[facility] Course First Treatment Date 04/28/2025 9:25 AM [facility] RADIATION [facility]COLOG[facility] Course Last Treatment Date 06/03/2025 9:35 AM [facility] RADIATION ONCOLOGY Course Elapsed Days 36 [facility] RADIATION ONCOLOGY Reference Point ID [id number] [facility] RADIATION ONCOLOG[facility] Reference Point Dosage Given to Date 67.5 Gy [facility] RADIATION ONCOLOGY Reference Point Session Dosage Given 2.5 Gy [facility] RADIATION ONCOLOG[facility] Plan ID A1-2 Prost/SV [facility] RAD[facility]ATION [facility]COLOG[facility] Plan Name Plan_Prostat e and Seminal Vesicles_PTV _70Gy [facility] RAD[facility]ATION ONCOLOG[facility] Plan Fractions Treated to Date 27 [facility] RADIATION ONCOLOGY Plan Total Fractions Prescribed 28 [facility] RADIATION ONCOLOGY Plan Prescribed Dose Per Fraction 2.5 Gy [facility] RADIATION ONCOLOGY Plan Total Prescribed Dose 7,000 CGy [facility] RADIATION ONCOLOGY Plan Primary Reference Point [email or web address] [facility] RADIATION ONCOLOGY 06/03/2025 9:36 AM EDT Physician Radiation Oncology RADIATION ONCRACQUEL GY ORDERABLES Final Result [facility] RADIATION ONCOLOGY * Rad Onc [facility] Session Summary (06/02/2025 9:27 AM EDT) Course ID C1 [facility] RADIATION ONCOLOGY Course Intent Curative [facility] RADIATION ONCOLOGY Course Start Date 04/08/2025 12:09 AM [facility] RADIATION ONCOLOG[facility] Course First Treatment Date 04/28/2025 9:25 AM [facility] RADIATION ONCOLOGY Course Last Treatment Date 06/02/2025 9:26 AM [facility] RADIATION ONCOLOGY Course Elapsed Days 35 [facility] RADIATION ONCOLOGY Reference Point ID [id number] [facility] RADIATION ONCOLOGY Reference Point Dosage Given to Date 65 Gy [facility] RADIATION ONCOLOG[facility] Reference Point Session Dosage Given 2.5 Gy [facility] RADIATION ONCOLOGY Plan ID A1-2 Prost/SV [facility] RAD[facility]ATION ONCOLOG[facility] Plan Name Plan_Prostat e and Seminal Vesicles_PTV _70Gy [facility]ATION [facility]COL[facility] Plan Fractions Treated to Date 26 [facility] RADIATION ONCOLOGY Plan Total Fractions Prescribed 28 [facility] RADIATION ONCOLOGY Plan Prescribed Dose Per Fraction 2.5 Gy [facility] RADIATION ONCOLOGY Plan Total Prescribed Dose 7,000 CGy [facility] RADIATION ONCOLOGY Plan Primary Reference Point [email or web address] [facility] RADIATION ONCOLOGY 06/02/2025 9:27 AM EDT Physician Radiation Oncology RADIATION ONCRACQUEL GY ORDERABLES Final Result [facility] RADIATION ONCOLOGY * Rad Onc [facility] Session Summary (05/30/2025 9:36 AM EDT) Course ID C1 [facility] RADIATION ONCOLOGY Course Intent Curative [facility] RADIATION ONCOLOGY Course Start Date 04/08/2025 12:09 AM [facility] RADIATION ONCOLOGY Course First Treatment Date 04/28/2025 9:25 AM [facility] RADIATION ONCOLOGY Course Last Treatment Date 05/30/2025 9:35 AM [facility] RADIATION ONCOLOGY Course Elapsed Days 32 [facility] RADIATION ONCOLOG[facility] Reference Point ID [id number] [facility] RADIATION ONCOLOGY Reference Point Dosage Given to Date 62.5 Gy [facility] RADIATION ONCOLOG[facility] Reference Point Session Dosage Given 2.5 Gy [facility] RADIATION ONCOLOG[facility] Plan ID A1-2 Prost/SV [facility] RAD[facility]ATION [facility]COLOG[facility] Plan Name Plan_Prostat e and Seminal Vesicles_PTV _70Gy [facility]ATION [facility]COL[facility] Plan Fractions Treated to Date 25 [facility] RADIATION ONCOLOGY Plan Total Fractions Prescribed 28 [facility] RADIATION ONCOLOGY Plan Prescribed Dose Per Fraction 2.5 Gy [facility] RADIATION ONCOLOGY Plan Total Prescribed Dose 7,000 CGy [facility] RADIATION ONCOLOGY Plan Primary Reference Point [email or web address] [facility] RADIATION ONCOLOGY 05/30/2025 9:36 AM EDT Physician Radiation Oncology MD RADIATION ONCOLO GY ORDERABLES Final Result [facility] RADIATION ONCOLOGY * Rad Onc [facility] Session Summary (05/29/2025 9:51 AM EDT) Course ID C1 [facility] RADIATION ONCOLOGY Course Intent Curative [facility] RADIATION ONCOLOGY Course Start Date 04/08/2025 12:09 AM [facility] RADIATION ONCOLOGY Course First Treatment Date 04/28/2025 9:25 AM [facility] RADIATION ONCOLOG[facility] Course Last Treatment Date 05/29/2025 9:49 AM [facility] RADIATION ONCOLOG[facility] Course Elapsed Days 31 [facility] RADIATION ONCOLOG[facility] Reference Point ID [id number] [facility] RADIATION ONCOLOGY Reference Point Dosage Given to Date 60 Gy [facility] RADIATION ONCOLOG[facility] Reference Point Session Dosage Given 2.5 Gy [facility] RADIATION ONCOLOG[facility] Plan ID A1-2 Prost/SV [facility] RADIATION ONCOLOG[facility] Plan Name Plan_Prostat e and Seminal Vesicles_PTV _70Gy [facility]ATION [facility]COLOG[facility] Plan Fractions Treated to Date 24 [facility] RADIATION ONCOLOGY Plan Total Fractions Prescribed 28 [facility] RADIATION ONCOLOGY Plan Prescribed Dose Per Fraction 2.5 Gy [facility] RADIATION ONCOLOGY Plan Total Prescribed Dose 7,000 CGy [facility] RADIATION ONCOLOGY Plan Primary Reference Point [email or web address] [facility] RADIATION ONCOLOGY 05/29/2025 9:51 AM EDT Physician Radiation Oncology RADIATION ONCOLO GY ORDERABLES Final Result [facility] RADIATION ONCOLOGY * Rad Onc [facility] Session Summary (05/28/2025 9:57 AM EDT) Course ID C1 [facility] RADIATION ONCOLOGY Course Intent Curative [facility] RADIATION ONCOLOGY Course Start Date 04/08/2025 12:09 AM [facility] RAD[facility]COLOG[facility] Course First Treatment Date 04/28/2025 9:25 AM [facility] RADIATION [facility]COLOG[facility] Course Last Treatment Date 05/28/2025 9:55 AM [facility] RADIATION ONCOLOG[facility] Course Elapsed Days 30 [facility] RADIATION ONCOLOG[facility] Reference Point ID [id number] [facility] RADIATION ONCOLOG[facility] Reference Point Dosage Given to Date 57.5 Gy [facility] RADIATION ONCOLOG[facility] Reference Point Session Dosage Given 2.5 Gy [facility] RADIATION ONCOLOG[facility] Plan ID A1-2 Prost/SV [facility]ATION [facility]COLOG[facility] Plan Name Plan_Prostat e and Seminal Vesicles_PTV _70Gy [facility]COL[facility] Plan Fractions Treated to Date 23 [facility] RADIATION ONCOLOG[facility] Plan Total Fractions Prescribed 28 [facility] RADIATION ONCOLOGY Plan Prescribed Dose Per Fraction 2.5 Gy [facility] RADIATION ONCOLOGY Plan Total Prescribed Dose 7,000 CGy [facility] RADIATION ONCOLOGY Plan Primary Reference Point [email or web address] [facility] RADIATION ONCOLOG[facility] 05/28/2025 9:57 AM EDT Physician Radiation Oncology RADIATION ONCRACQUEL GY ORDERABLES Final Result [facility] RADIATION ONCOLOGY * Rad Onc [facility] Session Summary (05/27/2025 9:22 AM EDT) Course ID C1 [facility] RADIATION ONCOLOGY Course Intent Curative [facility] RADIATION ONCOLOGY Course Start Date 04/08/2025 12:09 AM [facility] RADIATION ONCOLOGY Course First Treatment Date 04/28/2025 9:25 AM [facility] RADIATION ONCOLOG[facility] Course Last Treatment Date 05/27/2025 9:21 AM [facility] RADIATION ONCOLOGY Course Elapsed Days 29 [facility] RADIATION [facility]COLOG[facility] Reference Point ID [id number] [facility] RADIATION ONCOLOGY Reference Point Dosage Given to Date 55 Gy [facility] RADIATION ONCOLOG[facility] Reference Point Session Dosage Given 2.5 Gy [facility] RADIATION [facility]COLOG[facility] Plan ID A1-2 Prost/SV [facility] RAD[facility]ATION [facility]COLOG[facility] Plan Name Plan_Prostat e and Seminal Vesicles_PTV _70Gy [facility]ATION [facility]COL[facility] Plan Fractions Treated to Date 22 [facility] RADIATION [facility]COLOG[facility] Plan Total Fractions Prescribed 28 [facility] RADIATION ONCOLOGY Plan Prescribed Dose Per Fraction 2.5 Gy [facility] RADIATION ONCOLOGY Plan Total Prescribed Dose 7,000 CGy [facility] RADIATION ONCOLOG[facility] Plan Primary Reference Point [email or web address] [facility] RADIATION ONCOLOG[facility] 05/27/2025 9:22 AM EDT Physician Radiation Oncology RADIATION ONCOLO GY ORDERABLES Final Result [facility] RADIATION ONCOLOGY * Rad Onc [facility] Session Summary (05/26/2025 8:46 AM EDT) Course ID C1 [facility] RADIATION ONCOLOGY Course Intent Curative [facility] RADIATION ONCOLOGY Course Start Date 04/08/2025 12:09 AM [facility] RADIATION ONCOLOG[facility] Course First Treatment Date 04/28/2025 9:25 AM [facility] RADIATION ONCOLOGY Course Last Treatment Date 05/26/2025 8:45 AM [facility] RADIATION ONCOLOGY Course Elapsed Days 28 [facility] RADIATION ONCOLOGY Reference Point ID [id number] [facility] RADIATION ONCOLOGY Reference Point Dosage Given to Date 52.5 Gy [facility] RADIATION ONCOLOG[facility] Reference Point Session Dosage Given 2.5 Gy [facility] RADIATION ONCOLOGY Plan ID A1-2 Prost/SV [facility] RADIATION [facility]COLOG[facility] Plan Name Plan_Prostat e and Seminal Vesicles_PTV _70Gy [facility]ATION [facility]COLOG[facility] Plan Fractions Treated to Date 21 [facility] RADIATION ONCOLOG[facility] Plan Total Fractions Prescribed 28 [facility] RADIATION ONCOLOGY Plan Prescribed Dose Per Fraction 2.5 Gy [facility] RADIATION ONCOLOGY Plan Total Prescribed Dose 7,000 CGy [facility] RADIATION ONCOLOGY Plan Primary Reference Point [email or web address] [facility] RADIATION ONCOLOGY 05/26/2025 8:46 AM EDT Physician Radiation Oncology RADIATION ONCOLO GY ORDERABLES Final Result [facility] RADIATION ONCOLOGY * Rad Onc [facility] Session Summary (05/23/2025 9:29 AM EDT) Course ID C1 [facility] RADIATION ONCOLOGY Course Intent Curative [facility] RADIATION ONCOLOGY Course Start Date 04/08/2025 12:09 AM [facility] RADIATION ONCOLOGY Course First Treatment Date 04/28/2025 9:25 AM [facility] RADIATION ONCOLOGY Course Last Treatment Date 05/23/2025 9:28 AM [facility] RADIATION ONCOLOGY Course Elapsed Days 25 [facility] RADIATION ONCOLOGY Reference Point ID [id number] [facility] RADIATION ONCOLOGY Reference Point Dosage Given to Date 50 Gy [facility] RADIATION ONCOLOGY Reference Point Session Dosage Given 2.5 Gy [facility] RADIATION ONCOLOGY Plan ID A1-2 Prost/SV [facility] RADIATION ONCOLOG[facility] Plan Name Plan_Prostat e and Seminal Vesicles_PTV _70Gy [facility] RADIATION ONCOLOG[facility] Plan Fractions Treated to Date 20 [facility] RADIATION ONCOLOGY Plan Total Fractions Prescribed 28 [facility] RADIATION ONCOLOGY Plan Prescribed Dose Per Fraction 2.5 Gy [facility] RADIATION ONCOLOGY Plan Total Prescribed Dose 7,000 CGy [facility] RADIATION ONCOLOGY Plan Primary Reference Point [email or web address] [facility] RADIATION ONCOLOG[facility] 05/23/2025 9:29 AM EDT Physician Radiation Oncology RADIATION ONCRACQUEL GY ORDERABLES Final Result Performing Organization Address City/State/[facility] Co de Phone Number [facility] RADIATION ONCOLOGY * Rad Onc [facility] Session Summary (05/22/2025 9:02 AM EDT) Course ID C1 [facility]ATION [facility] Course Intent Curative [facility] Course Start Date 04/08/2025 12:09 AM [facility] Course First Treatment Date 04/28/2025 9:25 AM [facility] Course Last Treatment Date 05/22/2025 9:01 AM [facility] Course Elapsed Days 24 [facility] Reference Point ID [id number] [facility] Reference Point Dosage Given to Date 47.5 Gy [facility] Reference Point Session Dosage Given 2.5 Gy [facility] Plan ID [id number] Prost/SV [facility] Plan Name Plan_Prostat e and Seminal Vesicles_PTV _70Gy [facility] Plan Fractions Treated to Date 19 [facility] Plan Total Fractions Prescribed 28 [facility] Plan Prescribed Dose Per Fraction 2.5 Gy [facility] Plan Total Prescribed Dose 7,000 CGy [facility] Plan Primary Reference Point [email or web address] [facility] 05/22/2025 9:02 AM EDT Physician Radiation Oncology RADIATION ONCRACQUEL GY ORDERABLES Final Result [facility] * Rad Onc [facility] Session Summary (05/21/2025 9:19 AM EDT) Course ID C1 [facility] Course Intent Curative [facility] Course Start Date 04/08/2025 12:09 AM [facility] Course First Treatment Date 04/28/2025 9:25 AM [facility] Course Last Treatment Date 05/21/2025 9:17 AM [facility] Course Elapsed Days 23 [facility] Reference Point ID [id number] [facility] Reference Point Dosage Given to Date 45 Gy [facility] Reference Point Session Dosage Given 2.5 Gy [facility] Plan ID [id number] Prost/SV [facility] Plan Name Plan_Prostat e and Seminal Vesicles_PTV _70Gy [facility] Plan Fractions Treated to Date 18 [facility] Plan Total Fractions Prescribed 28 [facility] Plan Prescribed Dose Per Fraction 2.5 Gy [facility] Plan Total Prescribed Dose 7,000 CGy [facility] Plan Primary Reference Point [email or web address] [facility] 05/21/2025 9:19 AM EDT Physician Radiation Oncology RADIATION ONCOLO GY ORDERABLES Final Result [facility] * Rad Onc [facility] Session Summary (05/20/2025 9:15 AM EDT) Course ID C1 [facility] Course Intent Curative [facility] Course Start Date 04/08/2025 12:09 AM [facility] Course First Treatment Date 04/28/2025 9:25 AM [facility] Course Last Treatment Date 05/20/2025 9:14 AM [facility] Course Elapsed Days 22 [facility] Reference Point ID [id number] [facility] Reference Point Dosage Given to Date 42.5 Gy [facility] Reference Point Session Dosage Given 2.5 Gy [facility] Plan ID A1-2 Prost/SV [facility] Plan Name Plan_Prostat e and Seminal Vesicles_PTV _70Gy [facility] Plan Fractions Treated to Date 17 [facility] Plan Total Fractions Prescribed 28 [facility] Plan Prescribed Dose Per Fraction 2.5 Gy [facility] Plan Total Prescribed Dose 7,000 CGy [facility] Plan Primary Reference Point [email or web address] [facility] 05/20/2025 9:15 AM EDT Physician Radiation Oncology RADIATION ONCOLO GY ORDERABLES Final Result [facility] * Rad Onc [facility] Session Summary (05/19/2025 9:20 AM EDT) Course ID C1 [facility] Course Intent Curative [facility] Course Start Date 04/08/2025 12:09 AM [facility] Course First Treatment Date 04/28/2025 9:25 AM [facility] Course Last Treatment Date 05/19/2025 9:19 AM [facility] Course Elapsed Days 21 [facility] Reference Point ID [id number] [facility] Reference Point Dosage Given to Date 40 Gy [facility] Reference Point Session Dosage Given 2.5 Gy [facility] Plan ID A1-2 Prost/SV [facility] Plan Name Plan_Prostat e and Seminal Vesicles_PTV _70Gy [facility] Plan Fractions Treated to Date 16 [facility] Plan Total Fractions Prescribed 28 [facility] Plan Prescribed Dose Per Fraction 2.5 Gy [facility] Plan Total Prescribed Dose 7,000 CGy [facility] Plan Primary Reference Point [email or web address] [facility] 05/19/2025 9:20 AM EDT Physician Radiation Oncology RADIATION ONCOLO GY ORDERABLES Final Result [facility] from Last 3 [place] [address] Care Teams Management Accountant Relationship Specialty Start Date End Date Karen Cleaning APRN [address] [place] [address] PCP - General 04/03/24 Raisa Cuevas MD [address] [place] [address] Surgeon Urology 04/17/24 Jillian Hare PA [address] [place] [address] Physician Coning Machine Operator Urology 11/12/24 Chris Choe MD [address] [facility] [id number] [place] [address] Consulting Physician Radiation Oncology 11/14/24
== END 2025-08-18 23:59 | disposition home or self-care (01) ==
LOC: RAD 10:11
PROVIDERS: PCP Nurse Practitioner; Visit Provider Nurse Practitioner
DX: Z12.2 Encounter for screening for malignant neoplasm of respiratory organs (principal); Z87.891 Personal history of nicotine dependence; J98.4 Other disorders of lung; Z85.46 Personal history of malignant neoplasm of prostate
CPT/HCPCS: 71271